=== PATIENT | male | born 1990 | race Caucasian/White ===

== ENCOUNTER 2016-09-04 14:59 | Emergency (ER) | payer BC, MEDICAID ==
[2016-09-04 15:34] VITALS: BP 149/77
--- NOTE | 2016-09-04 15:59 | UC ---
Throat Pain/Nasal Zoltan HPI - HPI Summary HPI Summary: sore throat for 2 days - History of Current Complaint Chief Complaint: UCRespiratory Stated Complaint: THROAT PAIN Time Seen by Provider: 09/04/16 15:49 Hx Obtained From: Patient Onset/Duration: Gradual Onset, Lasting Days - 2, Still Present Severity: Mild Pain Intensity: 3 Pain Scale Used: 0-10 Numeric Cough: None Associated Signs & Symptoms: Positive: Rash - Allergies/Home Medications Allergies/Adverse Reactions: Allergies Allergy/AdvReac Type Severity Reaction Status Date / Time Penicillins Allergy Intermediate Difficulty Verified 09/04/16 15:34 Breathing/Wheezing PMH/Surg Hx/FS Hx/Imm Hx Previously Healthy: Yes Endocrine History Of: Denies: Diabetes, Thyroid Disease Cardiovascular History Of: Denies: Cardiac Disorders, Hypertension Respiratory History Of: Denies: COPD, Asthma GI/ History Of: Denies: Ulcer - Surgical History Surgical History: None - Family History Known Family History: Positive: None - Social History Occupation: Employed Full-time Lives: With Family Alcohol Use: Occasionally Substance Use Type: None Smoking Status (MU): Never Smoked Tobacco Have You Smoked in the Last Year: No Review of Systems Constitutional: Negative Skin: Negative Eyes: Negative ENT: Sore Throat Respiratory: Negative Cardiovascular: Negative Gastrointestinal: Negative Genitourinary: Negative Motor: Negative Neurovascular: Negative Musculoskeletal: Negative Neurological: Negative Psychological: Negative All Other Systems Reviewed And Are Negative: Yes Physical Exam Triage Information Reviewed: Yes Appearance: Well-Appearing, No Pain Distress, Well-Nourished Vital Signs: Initial Vital Signs Temp 98.6 F 09/04/16 15:31 Pulse 56 09/04/16 15:31 Resp 18 09/04/16 15:31 BP 149/77 09/04/16 15:31 Pulse Ox 100 09/04/16 15:31 Vital Signs Reviewed: Yes Eye Exam: Normal Eyes: Positive: Conjunctiva Clear ENT Exam: Normal ENT: Positive: Normal ENT inspection, Hearing grossly normal, Pharynx normal. Negative: Nasal congestion, Nasal drainage, Tonsillar swelling, Tonsillar exudate, Trismus, Muffled/hoarse voice Dental Exam: Normal Neck exam: Normal Neck: Positive: Supple, Nontender, No Lymphadenopathy Respiratory Exam: Normal Respiratory: Positive: Chest non-tender, Lungs clear, Normal breath sounds, No respiratory distress, No accessory muscle use Cardiovascular Exam: Normal Cardiovascular: Positive: RRR, No Murmur, Pulses Normal, Brisk Capillary Refill Musculoskeletal Exam: Normal Musculoskeletal: Positive: Strength Intact, ROM Intact, No Edema Neurological Exam: Normal Neurological: Positive: Alert, Muscle Tone Normal Psychological Exam: Normal Psychological: Positive: Normal Response To Family Skin Exam: Normal Diagnostics - Laboratory Diagnostic Studies Completed/Ordered: RST(-) Throat Pain/Nasal Course/Dx - Course Assessment/Plan: increase fluids, tylenol, ibuprofen for pain, zithromax should symptoms worsen or fail to improve, follow with pcp - Differential Dx/Diagnosis Differential Diagnosis/HQI/PQRI: Influenza, Laryngitis, Pharyngitis, Sinusitis, URI Provider Diagnoses: Pharyngitis Discharge - Discharge Plan Condition: Stable Disposition: HOME Prescriptions: Azithromycin TAB* [Zithromax TAB (Z-MAYCO) 250 mg #6 tabs] 2 tab PO .TODAY, THEN 1 DAILY #1 mayco Patient Education Materials: Pharyngitis (DC) Referrals: Deepika Hutton MD [Primary Care Provider] - If Needed
== END 2016-09-04 16:27 | disposition home or self-care (01) ==
LOC: UCEAST 14:59
DX: J02.9 Acute pharyngitis, unspecified (principal); R21 Rash and other nonspecific skin eruption; Z88.0 Allergy status to penicillin
CPT/HCPCS: 87651; 99212; G0463

== ENCOUNTER 2019-01-27 07:05 | Emergency (ER) | payer BC ==
[2019-01-27 07:19] VITALS: BP 118/72
--- NOTE | 2019-01-27 08:40 | UC ---
Complaint Male HPI - HPI Summary HPI Summary: 28-year-old male comes in with a chief complaint of rectal bleeding and hemorrhoids. Patient's had hemorrhoids on and off for many years. Over the last 3 days had having a lot of anal pain. This morning he woke up with a lot of blood in his bed. He does not feel lightheaded. He reports his stool usually are not extra hard but it does hurt quite often when he has a bowel movement. No fevers or chills feels well otherwise. He has used Preparation H. - History of Current Complaint Chief Complaint: UCGI Stated Complaint: PERSONAL Time Seen by Provider: 01/27/19 07:41 Pain Intensity: 1 - Allergies/Home Medications Allergies/Adverse Reactions: Allergies Allergy/AdvReac Type Severity Reaction Status Date / Time Penicillins Allergy Intermediate Unknown Verified 01/27/19 07:20 Reaction Details Home Medications: Home Medications NK [No Home Medications Reported] 01/27/19 [History Confirmed 01/27/19] PMH/Surg Hx/FS Hx/Imm Hx Previously Healthy: Yes - RECURRENT HEMORRHOIDS - Surgical History Surgical History: None Surgery Procedure, Year, and Place: right leg - Family History Known Family History: Positive: None - Social History Alcohol Use: Daily Substance Use Type: Marijuana Smoking Status (MU): Former Smoker Have You Smoked in the Last Year: No Review of Systems All Other Systems Reviewed And Are Negative: Yes Constitutional: Positive: Negative Skin: Positive: Negative Eyes: Positive: Negative ENT: Positive: Negative Respiratory: Positive: Negative Cardiovascular: Positive: Negative Gastrointestinal: Positive: Other - SEE HPI Genitourinary: Positive: Negative Motor: Positive: Negative Neurovascular: Positive: Negative Musculoskeletal: Positive: Negative Neurological: Positive: Negative Psychological: Positive: Negative Is Patient Immunocompromised?: No Physical Exam Triage Information Reviewed: Yes Appearance: Well-Appearing, No Pain Distress, Well-Nourished Vital Signs: Initial Vital Signs Temp 97.7 F 01/27/19 07:14 Pulse 73 01/27/19 07:14 Resp 18 01/27/19 07:14 BP 118/72 01/27/19 07:14 Pulse Ox 97 01/27/19 07:14 Vital Signs Reviewed: Yes Eye Exam: Normal Eyes: Positive: Conjunctiva Clear Neck: Positive: Supple Respiratory: Positive: No respiratory distress Male Genital Exam: Positive: Other - Patient has a firm thrombosed hemorrhoid 1 cm in diameter that has some minimal active bleeding. It is mildly tender to palpation. There is dried blood on the skin surrounding the area. Musculoskeletal: Positive: Strength Intact, ROM Intact Neurological Exam: Normal Neurological: Positive: Alert, Muscle Tone Normal Psychological: Positive: Age Appropriate Behavior Skin Exam: Normal Complaint Male Course/Dx - Course Course Of Treatment: I discussed the case with the surgeon on-call Dr. Lyle and he would like to see the patient in his office at 10 AM this morning. I discussed all this with the patient and is going over by POV. Patient is hemodynamically stable in clinic. - Differential Dx/Diagnosis Provider Diagnosis: Bleeding external hemorrhoids Discharge - Sign-Out/Discharge Documenting (check all that apply): Patient Departure All imaging exams completed and their final reports reviewed: No Studies - Discharge Plan Condition: Stable Disposition: HOME Patient Education Materials: Hemorrhoids (ED) Referrals: Deepika Hutton MD [Primary Care Provider] - Calvin Lyle MD [Medical Doctor] - Additional Instructions: FOLLOW UP WITH DR LYLE, SURGERY, THIS MORNING AT 10AM. [address] [facility] [place] [address] [place] [address] GET RECHECKED SOONER IF YOUR CONDITION WORSENS OR ANY QUESTIONS OR CONCERNS. - Billing Disposition and Condition Condition: STABLE Disposition: Home
== END 2019-01-27 08:45 | disposition home or self-care (01) ==
LOC: UCEAST 07:05
DX: K64.4 Residual hemorrhoidal skin tags (principal); Z87.891 Personal history of nicotine dependence; Z88.0 Allergy status to penicillin
CPT/HCPCS: 99211; G0463

== ENCOUNTER 2019-03-15 15:25 | Emergency (ER) | payer SELFPAY ==
[2019-03-15 15:45] VITALS: BP 124/78
--- NOTE | 2019-03-15 15:48 | UC ---
Skin Complaint HPI - HPI Summary HPI Summary: 28 yo male presents with abscess to left buttocks. He tells me that for the last week he has had a red swollen area to his left buttocks that is now firm and more painful today. He has been doing sitz baths with mild relief. Has not noticed any drainage. No hx of MRSA. Denies fevers or chills - History of Current Complaint Chief Complaint: UCSkin Time Seen by Provider: 03/15/19 15:47 Stated Complaint: SKIN COMPLAINT Hx Obtained From: Patient Onset/Duration: Gradual Onset Onset Severity: Moderate Current Severity: Severe Pain Intensity: 7 Pain Scale Used: 0-10 Numeric - Allergy/Home Medications Allergies/Adverse Reactions: Allergies Allergy/AdvReac Type Severity Reaction Status Date / Time Penicillins Allergy Intermediate Unknown Verified 03/15/19 15:41 Reaction Details PMH/Surg Hx/FS Hx/Imm Hx - Additional Past Medical History Additional PMH: None - Surgical History Surgical History: None Surgery Procedure, Year, and Place: right leg. wisdom teeth - Family History Known Family History: Positive: None - Social History Lives: With Family Alcohol Use: Weekly Substance Use Type: Marijuana Smoking Status (MU): Former Smoker Have You Smoked in the Last Year: No Review of Systems All Other Systems Reviewed And Are Negative: No Constitutional: Positive: Negative Skin: Positive: Other - Left buttocks abscess Respiratory: Positive: Negative Cardiovascular: Positive: Negative Neurovascular: Positive: Negative Neurological: Positive: Negative Psychological: Positive: Negative Physical Exam - Summary Physical Exam Summary: GENERAL: NAD. WDWN. No pain distress. SKIN: LEFT BUTTOCKS: 3.5cm diameter area of erythema, induration, and firmness with mildly fluctuant abscess underneath. TTP. No open wound or drainage. NECK: Supple. Nontender. No lymphadenopathy. CHEST: No accessory muscle use. Breathing comfortably and in no distress. CV: Pulses intact. Cap refill <2seconds NEURO: Alert. PSYCH: Age appropriate behavior. Triage Information Reviewed: Yes Vital Signs: Initial Vital Signs Temp 99.4 F 03/15/19 15:41 Pulse 86 03/15/19 15:41 Resp 18 03/15/19 15:41 BP 124/78 03/15/19 15:41 Pulse Ox 99 03/15/19 15:41 Vital Signs Reviewed: Yes Procedures - Incision and Drainage Left Buttocks Anesthesia: Lidocaine Instrument(s): Scalpel - #11 Packing: Other - None Course/Dx - Course Course Of Treatment: The procedure was explained to the pt and all questions were answered. A time out was performed, witnessed, and signed. The area was cleansed with an alcohol pad. A #11 blade was used to make a 5mm linear incision at the central most part of the abscess. Copious yellow purulent matter was able to be expressed. Hemostasis was achieved. Area was bandaged with a telfa. Pt tolerated well. - Diagnoses Provider Diagnosis: Abscess of buttock, left Discharge ED - Sign-Out/Discharge Documenting (check all that apply): Patient Departure All imaging exams completed and their final reports reviewed: No Studies - Discharge Plan Condition: Stable Disposition: HOME Prescriptions: Cephalexin CAP* [Keflex CAP*] 500 mg PO TID #21 cap Patient Education Materials: Abscess (ED) Referrals: Deepika Hutton MD [Primary Care Provider] - Additional Instructions: If you develop a fever, shortness of breath, chest pain, new or worsening symptoms - please call your PCP or go to the ED immediately. Please change the dressing daily until well healed (likely 5-7 days) Please take your antibiotics as prescribed - Billing Disposition and Condition Condition: STABLE Disposition: Home
[2019-03-15] MEDS ORDERED: Ibuprofen TAB* 400 MG PO ONE (15:56)
[2019-03-15] MEDS ORDERED: Lidocaine 2% PF * 5 ML VIAL INJ ONE (15:56)
== END 2019-03-15 16:53 | disposition home or self-care (01) ==
LOC: UCEAST 15:25
DX: L02.31 Cutaneous abscess of buttock (principal); Z87.891 Personal history of nicotine dependence; Z88.0 Allergy status to penicillin
CPT/HCPCS: 10060; 99212; A9270-GY; G0463

== ENCOUNTER 2019-03-23 16:09 | Emergency (ER) | payer MEDICAID ==
--- NOTE | 2019-03-23 16:17 | UC ---
Dental HPI - HPI Summary HPI Summary: 28 yo male presents for a recheck of his buttock abscess. He was here on 03/15 for this and I performed an I&D and started him on keflex. He states the abscess has significantly improved, but is still slightly hard under the skin with a little bit of redness. No pain, drainage, streaking, or fever. He is concerned that he needs more antibiotics - History of Current Complaint Chief Complaint: UCDentalProblem Stated Complaint: ABCESS TOOTH Time Seen by Provider: 03/23/19 16:16 Hx Obtained From: Patient Onset/Duration: Gradual Onset Severity: Moderate Pain Intensity: 5 Pain Scale Used: 0-10 Numeric - Allergies/Home Medications Allergies/Adverse Reactions: Allergies Allergy/AdvReac Type Severity Reaction Status Date / Time Penicillins Allergy Intermediate Unknown Verified 03/23/19 16:18 Reaction Details PMH/Surg Hx/FS Hx/Imm Hx - Additional Past Medical History Additional PMH: None - Surgical History Surgical History: None Surgery Procedure, Year, and Place: right leg. wisdom teeth - Family History Known Family History: Positive: None - Social History Lives: With Family Alcohol Use: Weekly Substance Use Type: Marijuana Smoking Status (MU): Former Smoker Have You Smoked in the Last Year: No Review of Systems All Other Systems Reviewed And Are Negative: No Constitutional: Positive: Negative Skin: Positive: Other - Abscess Respiratory: Positive: Negative Cardiovascular: Positive: Negative Neurological: Positive: Negative Psychological: Positive: Negative Physical Exam - Summary Physical Exam Summary: GENERAL: NAD. WDWN. No pain distress. SKIN: LEFT BUTTOCKS: 1.0cm area of mild erythema and firmness with healed central incision from previous I&D. NTTP. No induration, warmth, streaking, or drainage. NECK: Supple. Nontender. No lymphadenopathy. CHEST: No accessory muscle use. Breathing comfortably and in no distress. CV: Pulses intact. Cap refill <2seconds NEURO: Alert. PSYCH: Age appropriate behavior. Triage Information Reviewed: Yes Vital Signs: Vital Signs: Temp Pulse Resp BP Pulse Ox 99.0 F 69 18 139/74 99 03/23/19 16:14 03/23/19 16:14 03/23/19 16:14 03/23/19 16:14 03/23/19 16:14 Vital Signs Reviewed: Yes Dental Complaint Course/Dx - Course Course Of Treatment: Healing abscess. Will place him on bactrim to cover for additional pathogens and advise him to f/u if symptoms do not continue improving - Differential Dx/Diagnosis Provider Diagnosis: Abscess of buttock, left Discharge ED - Sign-Out/Discharge Documenting (check all that apply): Patient Departure All imaging exams completed and their final reports reviewed: No Studies - Discharge Plan Condition: Stable Disposition: HOME Prescriptions: Sulfamethox/Trimethoprim DS* [Bactrim DS 800/160 TAB*] 1 tab PO BID #10 tab Patient Education Materials: Abscess (ED) Referrals: Deepika Hutton MD [Primary Care Provider] - Additional Instructions: If you develop a fever, shortness of breath, chest pain, new or worsening symptoms - please call your PCP or go to the ED immediately. The abscess is healing well. I have added an additional 5 days of antibiotics of a different class to cover for any atypical bacteria - this should continue healing well. If it does not improve, please return to be rechecked - Billing Disposition and Condition Condition: STABLE Disposition: Home
[2019-03-23 16:18] VITALS: BP 139/74
== END 2019-03-23 16:35 | disposition home or self-care (01) ==
LOC: UCEAST 16:09
DX: L02.31 Cutaneous abscess of buttock (principal); Z87.891 Personal history of nicotine dependence; Z88.0 Allergy status to penicillin
CPT/HCPCS: 99212; G0463

== ENCOUNTER 2019-06-17 07:27 | Emergency (ER) | payer MEDICAID, OTHER ==
[2019-06-17 07:37] VITALS: BP 116/76
--- NOTE | 2019-06-17 07:53 | UC ---
Ear Complaint HPI - HPI Summary HPI Summary: CHIEF COMPLAINT and HPI: This is a 29 year old, healthy male with left ear discomfort for 2 days. He thinks he has an earbud in his left ear. Mild discomfort, non-radiating. VITAL SIGNS & SaO2 REVIEWED. NURSES NOTE REVIEWED. - History of Current Complaint Chief Complaint: UCEar Stated Complaint: OBJECT IN EAR Time Seen by Provider: 06/17/19 07:43 Pain Intensity: 1 - Allergies/Home Medications Allergies/Adverse Reactions: Allergies Allergy/AdvReac Type Severity Reaction Status Date / Time Penicillins Allergy Intermediate Unknown Verified 06/17/19 07:37 Reaction Details PMH/Surg Hx/FS Hx/Imm Hx Previously Healthy: Yes - Surgical History Surgical History: Yes Surgery Procedure, Year, and Place: right leg. wisdom teeth - Family History Known Family History: Positive: None Negative: Hypertension - Social History Occupation: Unemployed Lives: Alone Alcohol Use: Weekly Substance Use Type: Marijuana Smoking Status (MU): Former Smoker Have You Smoked in the Last Year: No Review of Systems All Other Systems Reviewed And Are Negative: Yes ENT: Positive: Ear Ache - left Respiratory: Positive: Negative Cardiovascular: Positive: Negative Gastrointestinal: Positive: Negative Is Patient Immunocompromised?: No Physical Exam - Summary Physical Exam Summary: Appearance: The patient is well-appearing, is in no pain or distress, and is well-nourished. Eyes: Conjunctiva are clear. Pupils are equal and reactive to light and accommodation. Extra ocular muscle movement is intact. ENT: The hearing is grossly normal, the pharynx is normal. There is no muffled or hoarse voice. No stridor. LEFT EAR: cerumen filled; right ear clear. Neck: The neck is supple and there is no lymphadenopathy. Respiratory: The chest is non-tender to palpation and without crepitus. The lungs are clear, there are normal breath sounds, and there is no respiratory distress. No wheezes, rales or rhonchi. Cardiovascular: Heart sounds reveal a regular rate and rhythm. There are no clicks, rubs or murmurs. There are no carotid bruits or thrills. Circulation is grossly intact. Abdomen: The abdomen is soft and nontender. There is no organomegaly. Bowel sounds are present and within normal limits. No point tenderness at McBurneys point. No CVA tenderness. Musculoskeletal: Strength is intact. The patient moves all extremities. Neurological: The patient is alert. Motor and sensory are examination grossly intact. Speech is normal. Psychological: The patient displays age appropriate behavior, and is conversant. GCS=15. Skin: Negative for rashes. PROCEDURE by nurse: irrigated left ear with good result; no foreign body seen. However, mild inflammation of canal of left ear. Triage Information Reviewed: Yes Vital Signs: Initial Vital Signs Temp 98.5 F 06/17/19 07:34 Pulse 62 06/17/19 07:34 Resp 16 06/17/19 07:34 BP 116/76 06/17/19 07:34 Pulse Ox 100 06/17/19 07:34 Ear Complaint Course/Dx - Course Course Of Treatment: This is a 29 year old, healthy male with left ear discomfort for 2 days. He thinks he has an earbud in his left ear. Mild discomfort, non-radiating. Left EAC cleared of cerumen. No foreign body. Inflammed skin. Will treat as otitis externa with antibiotic drops for 5-7 days. - Differential Dx/Diagnosis Differential Diagnosis/HQI/PQRI: Cellulitis, Foreign Body, Otitis Externa Provider Diagnosis: Otitis externa Discharge ED - Sign-Out/Discharge Documenting (check all that apply): Patient Departure All imaging exams completed and their final reports reviewed: No Studies - Discharge Plan Condition: Stable Disposition: HOME Prescriptions: Neomyc/Polym/HC 1% OTIC SUSP* [Cortisporin Otic Susp 1%*] 4 drop LEFT EAR QID # 1 btl MDD 4 DROPS Patient Education Materials: Otitis Externa (DC) Referrals: Deepika Hutton MD [Primary Care Provider] - Additional Instructions: WE DISCUSSED: PLEASE SEEK CARE AT THE EMERGENCY DEPARTMENT IF SYMPTOMS WORSEN OR IF NEW SYMPTOMS DEVELOP. FOLLOW UP WITH YOUR PRIMARY CARE PHYSICIAN IF CONDITION CONTINUES BEYOND 3 DAYS WITHOUT IMPROVEMENT. YOUR DIAGNOSIS IS: infection of the skin of your ear canal of your left ear YOUR PRESCRIPTION RECOMMENDATION IS: antibiotic ear drops for your left ear OTHER INSTRUCTIONS: sudafed one hour before flying for ear congestion; recheck for any increased pain in your left ear FOR PAIN AND/OR SLEEP: For pain: Ibuprofen (Motrin and other brand names) 400-600mg PLUS acetaminophen (Tylenol and other brand names) 500mg - 1000mg every 8 hours. - Billing Disposition and Condition Condition: STABLE Disposition: Home
== END 2019-06-17 08:25 | disposition home or self-care (01) ==
LOC: UCEAST 07:27
DX: H61.22 Impacted cerumen, left ear (principal); Z88.0 Allergy status to penicillin; Z87.891 Personal history of nicotine dependence
CPT/HCPCS: 99213; G0463